=== PATIENT | male | born 1945 | race Caucasian/White ===

== ENCOUNTER → 2017-06-17 12:28 | Outpatient (CLI) | payer MEDICARE, MEDICAID, SELFPAY ==
--- NOTE | 2017-06-17 13:30 | MRI_ITS ---
STUDY: MRI RIGHT SHOULDER REASON FOR EXAM: Right shoulder pain with movement, injury 3 weeks ago. TECHNIQUE: Standardized fat and water weighted pulse sequences were obtained in all 3 orthogonal planes. COMPARISON: None. FINDINGS: There is supraspinatus tendinosis and a small full-thickness tear of the distal anterior supraspinatus tendon (T2 coronal images 13-15) measuring approximately 0.4 x 0.7 cm (length x width). Normal infraspinatus tendon. Normal subscapularis tendon. Normal teres minor tendon. Normal supraspinatus muscle. Normal infraspinatus muscle. Normal subscapularis muscle. There is mild atrophy with mild partial fat replacement of the teres minor muscle (T2 sagittal images 8-11). Normal glenohumeral articulation. There is a small cyst in the greater tuberosity. Normal biceps labral complex. Normal intracapsular long biceps tendon. Normal labrum. Normal capsulo- ligamentous complex. There is acromioclavicular arthrosis without substantial undersurface osteophytes (T2 sagittal image 5). There is a Type II morphology (curved), with a neutral orientation. There is a small volume of subacromial-subdeltoid bursal fluid. Normal visualized coracohumeral and coracoacromial ligaments. Normal deltoid muscle. Normal trapezius muscle. MRI/Upper Ext Joint Only(Routine) IMPRESSION: Small full-thickness tear and tendinosis of the supraspinatus tendon. Mild atrophy of the teres minor muscle. Acromioclavicular arthrosis. Subacromial-subdeltoid bursal fluid. Electronically Signed: Phil Lawler MD at 15:05 EST Tel , Service support ,
--- NOTE | 2017-06-17 14:30 | MRI_ITS ---
STUDY: MRI LEFT SHOULDER REASON FOR EXAM: Male, 72 years old. Left shoulder pain increased pain with movement. Injury 3 weeks ago TECHNIQUE: Standardized fat and water weighted pulse sequences were obtained in all 3 orthogonal planes. COMPARISON: None. FINDINGS: There is a full-thickness tear of the supraspinatus tendon extending to the infraspinatus tendon with tendon retraction to the level of the acromion measuring approximately 3 cm in diameter (coronal T2 series 5 image 7). There is a tear of the deep fibers of the subscapularis tendon with medial subluxation of the long biceps tendon (axial T2 series 3 image 13). Normal teres minor tendon. 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 Normal infraspinatus muscle. Normal subscapularis muscle. Normal teres minor muscle. There is a small volume joint effusion of the glenohumeral joint. Normal humeral head and visualized proximal humerus. Normal labrum. Normal capsulo- ligamentous complex. Normal rotator interval. There is moderate osteoarthritis of the acromioclavicular articulations. There is a Type I morphology (flat undersurface), with a neutral orientation. There is fluid distention of the subacromial-subdeltoid bursa, which communicates with the glenohumeral joint, through a rotator cuff tear. Normal visualized coracohumeral and coracoacromial ligaments. Normal quadrilateral space. Normal axillary space. Normal deltoid muscle. Normal trapezius muscle. MRI/Upper Ext Joint Only(Routine) IMPRESSION: For venous tear of the supraspinatus tendon extending into the infraspinatus tendon with supraspinatus muscular atrophy and tendon retraction. Partial tear of the deep fibers of the subscapularis tendon with medial subluxation of the long biceps tendon. Moderate acromioclavicular joint arthrosis. Joint effusion with fluid extending into the subacromial subdeltoid bursa through the rotator cuff tear Electronically Signed: Silas Solorzano MD, FACR at 14:23 EST , Service support ,
== END ==
PROVIDERS: Family Provider Internal Medicine Cardiovascular Disease; PCP Internal Medicine Cardiovascular Disease; Visit Provider Internal Medicine Cardiovascular Disease
DX: M25.512 Pain in left shoulder (principal); M25.511 Pain in right shoulder; M54.5 Low back pain
CPT/HCPCS: 73221